=== PATIENT | female | born 1955 | race African-American/Black ===

== ENCOUNTER 2016-05-18 11:59 | Emergency (ER) | payer MEDICAID ==
[~2016-05-18] VITALS: Ht 167.6 cm; Wt 67.1 kg
[2016-05-18 12:37] LABS: CALCIUM 8.7 mg/dL (8.5-10.1); CARBON DIOXIDE 26.2 mmol/L (21-32); CHLORIDE SERUM 97 mmol/L (98-107); CREATININE SERUM 0.7 mg/dL (0.6-1.0); GFR1 > 60 mL/min; GLUCOSE SERUM 88 mg/dL (74-106); POTASSIUM SERUM 3.3 mmol/L (3.5-5.1); SODIUM SERUM 133 mmol/L (136-145)
[2016-05-18 12:39] LABS: PLATELET COUNT 242 x10^3mcL (130-400)
[2016-05-18 12:42] LABS: ALBUMIN 3.4 g/dL (3.4-5.0); ALKALINE PHOSPHATASE 97 U/L (46-116); ALT/SGPT 14 U/L (14-59); AST/SGOT 16 U/L (15-37); BILIRUBIN TOTAL 1.41 mg/dL (0.20-1.00)
[2016-05-18 14:15] LABS: RED CELL DISTRIBUTION WIDTH 15.5 % (11.5-14.5)
[2016-05-18 14:24] LABS: BAND NEUTROPHIL 3 % (0-10); BASOPHIL 0 % (0-2); MONOCYTE 6 % (0-7); SEGMENTED NEUTROPHILS 81 % (37-75); rbc morphology (normal/abnorm) NORMAL (NORMAL)
[2016-05-18 14:54] LABS: microscopic required? YES; urine erythrocyte 3+ (NEGATIVE)
[2016-05-18 15:32] VITALS: BP 147/80
== END 2016-05-18 15:32 | disposition home or self-care (01) ==
LOC: ED 11:59
PROVIDERS: Emergency Medicine
DX: C67.9 Malignant neoplasm of bladder, unspecified (principal); J45.909 Unspecified asthma, uncomplicated; N39.0 Urinary tract infection, site not specified; Z79.899 Other long term (current) drug therapy; Z88.2 Allergy status to sulfonamides; Z88.8 Allergy status to other drugs, medicaments and biological substances
CPT/HCPCS: J1170; J1885; J2405; J7030

== ENCOUNTER 2016-06-07 06:01 | Emergency (ER) | payer MEDICAID ==
[2016-06-07 07:27] LABS: PLATELET COUNT 214 x10^3mcL (130-400)
[2016-06-07 07:29] LABS: CARBON DIOXIDE 26.4 mmol/L (21-32); CHLORIDE SERUM 100 mmol/L (98-107); CREATININE SERUM 0.9 mg/dL (0.6-1.0); GFR1 > 60 mL/min; GLUCOSE SERUM 92 mg/dL (74-106); POTASSIUM SERUM 3.4 mmol/L (3.5-5.1); RED CELL DISTRIBUTION WIDTH 16.8 % (11.5-14.5); SODIUM SERUM 134 mmol/L (136-145)
[2016-06-07 07:31] LABS: ALKALINE PHOSPHATASE 52 U/L (46-116); ALT/SGPT 19 U/L (14-59); AST/SGOT 15 U/L (15-37); BILIRUBIN TOTAL 0.32 mg/dL (0.20-1.00)
[2016-06-07 07:34] LABS: ALBUMIN 3.2 g/dL (3.4-5.0)
[2016-06-07] MEDS ORDERED: ADV100/50 (07:57)
[2016-06-07] MEDS ORDERED: ALBUTEROL1.25 MG/3 (07:57)
[2016-06-07 08:10] VITALS: BP 151/70
[2016-06-07 09:25] LABS: BAND NEUTROPHIL 0 % (0-10); BASOPHIL 0 % (0-2); MONOCYTE 9 % (0-7); SEGMENTED NEUTROPHILS 57 % (37-75); rbc morphology (normal/abnorm) ABNORMAL (NORMAL)
[2016-06-07 09:27] LABS: ovalocyte/elliptocyte 1+
== END 2016-06-07 08:10 | disposition left against medical advice (07) ==
LOC: ED 06:01 → DU 07:40 → ED 08:10
PROVIDERS: Emergency Medicine
DX: R07.9 Chest pain, unspecified (principal); M32.9 Systemic lupus erythematosus, unspecified; F17.200 Nicotine dependence, unspecified, uncomplicated; E87.6 Hypokalemia; Z88.2 Allergy status to sulfonamides; Z88.8 Allergy status to other drugs, medicaments and biological substances; Z79.899 Other long term (current) drug therapy
CPT/HCPCS: 83880; J1885; J7613; J7644; Q0092

== ENCOUNTER 2016-06-10 02:05 | Emergency (ER) | payer MEDICAID ==
[~2016-06-10 02:05] MED LIST: ADV100/50; ALBUTEROL1.25 MG/3
[2016-06-10 02:43] VITALS: BP 154/76
== END 2016-06-10 02:43 | disposition home or self-care (01) ==
LOC: ED 02:05
DX: J45.901 Unspecified asthma with (acute) exacerbation (principal); Z88.2 Allergy status to sulfonamides; Z88.8 Allergy status to other drugs, medicaments and biological substances
CPT/HCPCS: J7512; J7613; J7644

== ENCOUNTER 2016-06-24 09:10 | Emergency (ER) | payer MEDICAID ==
[2016-06-24 12:26] VITALS: BP 130/72
[2016-06-24 12:41] LABS: UA SPECIFIC GRAVITY 1.015 (1.005-1.035); microscopic required? YES
[2016-06-24 12:42] LABS: urine erythrocyte 3+ (NEGATIVE)
== END 2016-06-24 12:26 | disposition home or self-care (01) ==
LOC: ED 09:10
PROVIDERS: Specialist
DX: R33.9 Retention of urine, unspecified (principal); R14.0 Abdominal distension (gaseous); E66.9 Obesity, unspecified; R05 Cough; J45.909 Unspecified asthma, uncomplicated; Z98.890 Other specified postprocedural states
CPT/HCPCS: J1885; J7613

== ENCOUNTER 2016-06-29 08:51 | Emergency (ER) | payer MEDICAID ==
[~2016-06-29] VITALS: Ht 167.6 cm; Wt 68.5 kg
[2016-06-29 08:53] VITALS: BP 136/62
== END 2016-06-29 09:49 | disposition left against medical advice (07) ==
LOC: ED 08:51
DX: Z53.21 Procedure and treatment not carried out due to patient leaving prior to being seen by health care provider (principal)

== ENCOUNTER 2016-07-17 15:02 | Emergency (ER) | payer MEDICAID | END 2016-07-17 15:56 | disposition left against medical advice (07) | LOC: ED 15:02 | DX: Z53.21 Procedure and treatment not carried out due to patient leaving prior to being seen by health care provider (principal) ==

== ENCOUNTER 2016-07-22 06:50 | Emergency (ER) | payer MEDICAID ==
[2016-07-22 07:38] LABS: BASOPHIL % 0.8 % (0-2); PLATELET COUNT 193 x10^3mcL (130-400)
[2016-07-22 07:40] LABS: RED CELL DISTRIBUTION WIDTH 18.5 % (11.5-14.5)
[2016-07-22 07:41] LABS: CALCIUM 7.9 mg/dL (8.5-10.1); CARBON DIOXIDE 27.6 mmol/L (21-32); CHLORIDE SERUM 103 mmol/L (98-107); CREATININE SERUM 0.8 mg/dL (0.6-1.0); GFR1 > 60 mL/min; GLUCOSE SERUM 112 mg/dL (74-106); POTASSIUM SERUM 3.4 mmol/L (3.5-5.1); SODIUM SERUM 137 mmol/L (136-145)
[2016-07-22 07:47] LABS: ALBUMIN 2.7 g/dL (3.4-5.0); ALKALINE PHOSPHATASE 61 U/L (46-116); ALT/SGPT 20 U/L (14-59); AST/SGOT 15 U/L (15-37); BILIRUBIN TOTAL 0.4 mg/dL (0.20-1.00); TOTAL PROTEIN, SERUM 6.2 g/dL (6.4-8.2)
[2016-07-22 08:28] LABS: microscopic required? YES; urine erythrocyte 3+ (NEGATIVE)
[2016-07-22 08:40] VITALS: BP 113/92
== END 2016-07-22 08:58 | disposition left against medical advice (07) ==
LOC: ED 06:50
PROVIDERS: Emergency Medicine
DX: R33.9 Retention of urine, unspecified (principal); R31.9 Hematuria, unspecified; D64.9 Anemia, unspecified; C67.9 Malignant neoplasm of bladder, unspecified; L93.0 Discoid lupus erythematosus; J44.9 Chronic obstructive pulmonary disease, unspecified; F17.210 Nicotine dependence, cigarettes, uncomplicated; Z90.710 Acquired absence of both cervix and uterus; Z88.2 Allergy status to sulfonamides; Z88.8 Allergy status to other drugs, medicaments and biological substances
CPT/HCPCS: 36415; 83880; J7613; J7644; Q0092

== ENCOUNTER 2016-08-04 17:06 | Inpatient (IN) | payer MEDICAID ==
[~2016-08-04] VITALS: Ht 167.6 cm; Wt 68.0 kg
[2016-08-04 19:00] LABS: BASOPHIL % 1.1 % (0-2); PLATELET COUNT 265 x10^3mcL (130-400)
[2016-08-04 19:06] LABS: CALCIUM 8.1 mg/dL (8.5-10.1); CARBON DIOXIDE 24.3 mmol/L (21-32); CHLORIDE SERUM 104 mmol/L (98-107); CREATININE SERUM 0.7 mg/dL (0.6-1.0); GFR1 > 60 mL/min; GLUCOSE SERUM 103 mg/dL (74-106); POTASSIUM SERUM 3.1 mmol/L (3.5-5.1); SODIUM SERUM 135 mmol/L (136-145)
[2016-08-04 19:11] LABS: ALKALINE PHOSPHATASE 82 U/L (46-116); ALT/SGPT 19 U/L (14-59); AST/SGOT 26 U/L (15-37); BILIRUBIN TOTAL 0.42 mg/dL (0.20-1.00); TOTAL PROTEIN, SERUM 6.2 g/dL (6.4-8.2)
[2016-08-04 19:13] LABS: ALBUMIN 2.7 g/dL (3.4-5.0)
[2016-08-04 19:18] LABS: RED CELL DISTRIBUTION WIDTH 19.8 % (11.5-14.5)
[2016-08-04 19:21] LABS: rbc morphology (normal/abnorm) ABNORMAL (NORMAL)
[2016-08-04 19:28] LABS: UA SPECIFIC GRAVITY 1.015 (1.005-1.035); microscopic required? YES; urine erythrocyte 3+ (NEGATIVE)
[2016-08-04] MEDS ORDERED: GABAPENTIN600 M1 PO ×2 (20:35)
[2016-08-04] MEDS ORDERED: ADV100/50 INH (20:36)
[2016-08-04] MEDS ORDERED: PROAIR HFA8.5 GM (20:36)
[2016-08-04] MEDS ORDERED: NORCO1 TA2 PO (20:36)
[2016-08-04] MEDS ORDERED: TIZANIDINE HCL4 MG PO (20:36)
[2016-08-04 21:38] VITALS: BP 121/63
[2016-08-04 22:07] LABS: MAGNESIUM 1.7 mg/dL (1.8-2.4); PHOSPHOROUS 1.6 mg/dL (2.5-4.9)
[2016-08-04 22:11] LABS: CHOLESTEROL/HDL RATIO 3.4
[2016-08-04 22:14] LABS: T3 TOTAL 1.36 ng/mL
[2016-08-04 22:15] LABS: FREE T4 0.96 ng/dL (0.76-1.46); FREE THYROXINE INDEX 1.9 ug/dL (1.4-4.5); T4(THYROXINE) 5.7 ug/dL (4.7-13.3)
[2016-08-05 05:59] VITALS: BP 121/63
[2016-08-05 06:58] VITALS: BP 97/46
[2016-08-05 10:00] VITALS: BP 103/33
[2016-08-05 10:45] VITALS: BP 80/41
[2016-08-05 11:00] VITALS: BP 79/41
[2016-08-05 13:43] VITALS: BP 102/43
== END 2016-08-05 17:51 | disposition left against medical advice (07) | DRG 463 ==
LOC: ED 17:06 → DU 20:28
PROVIDERS: Emergency Medicine; ADMIT Family Medicine
PROC: 30233N1 Transfusion of Nonautologous Red Blood Cells into Peripheral Vein, Percutaneous Approach (ICD-10-PCS; principal; 2016-08-04)
DX: N39.0 Urinary tract infection, site not specified (principal); N17.0 Acute kidney failure with tubular necrosis; E43 Unspecified severe protein-calorie malnutrition; M32.9 Systemic lupus erythematosus, unspecified; D62 Acute posthemorrhagic anemia; C67.9 Malignant neoplasm of bladder, unspecified; E83.39 Other disorders of phosphorus metabolism; R31.9 Hematuria, unspecified; E87.6 Hypokalemia; E86.0 Dehydration; J45.909 Unspecified asthma, uncomplicated; F17.210 Nicotine dependence, cigarettes, uncomplicated; Z91.19 Patient's noncompliance with other medical treatment and regimen; Z92.21 Personal history of antineoplastic chemotherapy
CPT/HCPCS: 83880; 84439; J0696; J7030; J7040; J7050; P9016; Q0092; Q0163

== ENCOUNTER 2016-09-09 09:42 | Emergency (ER) | payer OTHER, MEDICAID ==
[~2016-09-09 09:42] MED LIST changes: +ADV100/50 INH; +GABAPENTIN600 M1 PO; +NORCO1 TA2 PO; +PROAIR HFA8.5 GM; +TIZANIDINE HCL4 MG PO
[2016-09-09 09:49] VITALS: BP 145/89
== END 2016-09-09 09:54 | disposition left against medical advice (07) ==
LOC: ED 09:42
DX: Z53.21 Procedure and treatment not carried out due to patient leaving prior to being seen by health care provider (principal)

== ENCOUNTER 2016-09-16 14:30 | Emergency (ER) | payer OTHER, MEDICAID ==
[~2016-09-16] VITALS: Ht 167.6 cm; Wt 63.5 kg
[2016-09-16 15:44] LABS: UA SPECIFIC GRAVITY 1.015 (1.005-1.035); microscopic required? YES; urine erythrocyte 3+ (NEGATIVE)
[2016-09-16 16:24] VITALS: BP 92/52
== END 2016-09-16 16:46 | disposition home or self-care (01) ==
LOC: ED 14:30
PROVIDERS: Emergency Medicine
DX: R33.9 Retention of urine, unspecified (principal); J45.901 Unspecified asthma with (acute) exacerbation; Z88.2 Allergy status to sulfonamides; Z88.8 Allergy status to other drugs, medicaments and biological substances; Z85.51 Personal history of malignant neoplasm of bladder
CPT/HCPCS: J7613; J7644

== ENCOUNTER 2016-09-18 02:45 | Emergency (ER) | payer OTHER, MEDICAID ==
[2016-09-18 02:52] VITALS: BP 150/76
== END 2016-09-18 04:19 | disposition left against medical advice (07) ==
LOC: ED 02:45
DX: R31.0 Gross hematuria (principal); J44.1 Chronic obstructive pulmonary disease with (acute) exacerbation; D64.9 Anemia, unspecified; Z88.2 Allergy status to sulfonamides; Z88.8 Allergy status to other drugs, medicaments and biological substances; Z79.899 Other long term (current) drug therapy; Z85.51 Personal history of malignant neoplasm of bladder; Z90.710 Acquired absence of both cervix and uterus; Z90.89 Acquired absence of other organs
CPT/HCPCS: 83880; J7613; J7644

== ENCOUNTER 2016-10-15 16:32 | Emergency (ER) | payer OTHER, MEDICAID ==
[2016-10-15 16:37] VITALS: BP 139/79
[2016-10-15 17:32] LABS: CALCIUM 8.1 mg/dL (8.5-10.1); CARBON DIOXIDE 26.2 mmol/L (21-32); CHLORIDE SERUM 110 mmol/L (98-107); CREATININE SERUM 0.6 mg/dL (0.6-1.0); GFR1 > 60 mL/min; GLUCOSE SERUM 83 mg/dL (74-106); POTASSIUM SERUM 3.1 mmol/L (3.5-5.1); SODIUM SERUM 141 mmol/L (136-145)
[2016-10-15 17:37] LABS: ALKALINE PHOSPHATASE 74 U/L (46-116); ALT/SGPT 13 U/L (14-59); AST/SGOT 21 U/L (15-37); BILIRUBIN TOTAL 0.4 mg/dL (0.20-1.00)
[2016-10-15 17:38] LABS: ALBUMIN 2.9 g/dL (3.4-5.0); TOTAL PROTEIN, SERUM 6.1 g/dL (6.4-8.2)
[2016-10-15 17:44] LABS: PLATELET COUNT 248 x10^3mcL (130-400)
[2016-10-15 17:46] LABS: RED CELL DISTRIBUTION WIDTH 22.5 % (11.5-14.5)
[2016-10-15 18:02] LABS: ATYPICAL LYMPH 1 %; BAND NEUTROPHIL 2 % (0-10); MONOCYTE 15 % (0-7); SEGMENTED NEUTROPHILS 40 % (37-75); rbc morphology (normal/abnorm) ABNORMAL (NORMAL)
[2016-10-15 18:03] LABS: PLATELET MORPHOLOGY LARGE PLATELET SEEN; tear drop cell (dacryocyte) 1+
== END 2016-10-15 18:27 | disposition home or self-care (01) ==
LOC: ED 16:32
PROVIDERS: Emergency Medicine
DX: R06.02 Shortness of breath (principal); D64.9 Anemia, unspecified; E87.6 Hypokalemia; Z85.51 Personal history of malignant neoplasm of bladder
CPT/HCPCS: 36415; J7620

== ENCOUNTER 2016-10-29 18:07 | Emergency (ER) | payer OTHER, MEDICAID ==
[~2016-10-29] VITALS: Ht 167.6 cm; Wt 65.8 kg
[2016-10-29 19:13] VITALS: BP 137/90
== END 2016-10-29 19:13 | disposition home or self-care (01) ==
LOC: ED 18:07
DX: J45.901 Unspecified asthma with (acute) exacerbation (principal); J18.9 Pneumonia, unspecified organism; R03.0 Elevated blood-pressure reading, without diagnosis of hypertension; Z88.2 Allergy status to sulfonamides; Z88.8 Allergy status to other drugs, medicaments and biological substances
CPT/HCPCS: J7512; J7613; J7644

== ENCOUNTER 2016-11-07 19:43 | Emergency (ER) | payer OTHER, MEDICAID | END 2016-11-07 21:58 | disposition left against medical advice (07) | LOC: ED 19:43 | DX: Z53.21 Procedure and treatment not carried out due to patient leaving prior to being seen by health care provider (principal) ==

== ENCOUNTER 2016-11-08 03:06 | Emergency (ER) | payer OTHER, MEDICAID ==
[~2016-11-08] VITALS: Ht 167.6 cm; Wt 66.2 kg
[2016-11-08 04:50] VITALS: BP 151/84
== END 2016-11-08 04:53 | disposition home or self-care (01) ==
LOC: ED 03:06
DX: J45.901 Unspecified asthma with (acute) exacerbation (principal); J44.9 Chronic obstructive pulmonary disease, unspecified; F17.210 Nicotine dependence, cigarettes, uncomplicated; Z88.2 Allergy status to sulfonamides; Z88.8 Allergy status to other drugs, medicaments and biological substances; Z90.710 Acquired absence of both cervix and uterus; Z90.89 Acquired absence of other organs
CPT/HCPCS: J2930; J7620

== ENCOUNTER 2016-11-15 08:12 | Emergency (ER) | payer OTHER, MEDICAID ==
[2016-11-15 08:18] VITALS: BP 128/80
== END 2016-11-15 10:30 | disposition home or self-care (01) ==
LOC: ED 08:12
DX: J44.1 Chronic obstructive pulmonary disease with (acute) exacerbation (principal); Z88.2 Allergy status to sulfonamides; Z88.8 Allergy status to other drugs, medicaments and biological substances
CPT/HCPCS: J7512; J7644

== ENCOUNTER 2016-11-24 11:27 | Emergency (ER) | payer OTHER, MEDICAID ==
[~2016-11-24] VITALS: Ht 162.6 cm; Wt 72.6 kg
--- NOTE | 2016-11-24 12:57 | NUR ---
PEAK FLOW 110 LPM PRE TX AND 120 LPM POST TX . PREDICTED 415 LPM.
[2016-11-24 14:00] VITALS: BP 129/78
== END 2016-11-24 14:15 | disposition left against medical advice (07) ==
LOC: ED 11:27
DX: R06.02 Shortness of breath (principal); J45.909 Unspecified asthma, uncomplicated; M32.9 Systemic lupus erythematosus, unspecified; F17.200 Nicotine dependence, unspecified, uncomplicated; R60.0 Localized edema; Z90.89 Acquired absence of other organs; Z90.710 Acquired absence of both cervix and uterus; Z71.6 Tobacco abuse counseling; Z88.2 Allergy status to sulfonamides; Z88.8 Allergy status to other drugs, medicaments and biological substances
CPT/HCPCS: 83880; 94150; 99406; J2930; J7613; J7644; Q0092

== ENCOUNTER 2016-12-01 15:25 | Emergency (ER) | payer OTHER, MEDICAID ==
[~2016-12-01] VITALS: Ht 157.5 cm; Wt 86.2 kg
== END 2016-12-01 18:05 | disposition expired ==
LOC: ED 15:25
DX: I46.9 Cardiac arrest, cause unspecified (principal); J44.9 Chronic obstructive pulmonary disease, unspecified; M32.9 Systemic lupus erythematosus, unspecified; Z85.51 Personal history of malignant neoplasm of bladder